=== PATIENT | female | born 1950 | race Caucasian/White ===

== ENCOUNTER 2016-04-22 02:35 | Emergency (ER) | payer MEDICARE ==
[2016-04-22 03:17] LABS: BASOPHILS 0 % (0.0-2.0); EOSINOPHILS 1.4 % (0-7); HEMATOCRIT 47.3 % (36.0-48.0); HEMOGLOBIN 15.6 g/dL (12-16); IMMATURE GRANULOCYTES 0.3 % (0-5); LYMPHOCYTES 10.1 % (15-50); MCH 31.3 pg (26.0-34.0); MEAN PLATELET VOLUME 11.2 fL (7.4-10.4); MONOCYTES 7.6 % (2-11); NEUTROPHILS 80.6 % (40-80); PLATELET COUNT 207 10x3/uL (130-400); RBC 4.98 10x6/uL (4.00-5.40); RDW 12.9 % (11.5-14.5); WBC 7.2 10x3/uL (4.8-10.8)
[2016-04-22 03:26] LABS: HELICOBACTER PYLORI IGG POSITIVE (NEGATIVE)
[2016-04-22 03:31] LABS: ALBUMIN 3.4 g/dL (3.4-5.0); ALKALINE PHOSPHATASE 61 U/L (46-116); ALT (SGPT) 129 U/L (10-68); BILIRUBIN - TOTAL 0.79 mg/dL (0.2-1.3); CALC OSMOLALITY 290 mosm/kg (275-300); CALCIUM 8.6 mg/dL (8.5-10.1); CARBON DIOXIDE 25.5 mmol/L (21.0-32.0); CHLORIDE - SERUM 100 mmol/L (98-107); GLUCOSE 333 mg/dL (74-106); POTASSIUM - SERUM 3.7 mmol/L (3.5-5.1); PROTEIN - SERUM 6.8 g/dL (6.4-8.2); SODIUM 138 mmol/L (136-145); UREA NITROGEN 18 mg/dL (7-18); eGFR NON AFRICAN AMERICAN 58 mL/min (90-120)
[2016-04-22 03:34] LABS: AMYLASE - SERUM 67 U/L (25-115); LIPASE 287 U/L (73-393); MAGNESIUM - SERUM 1.5 mg/dL (1.8-2.4); PHOSPHOROUS 2.7 mg/dL (2.5-4.9); TROPONIN-I < 0.017 ng/mL (0.000-0.060)
== END 2016-04-22 09:49 | disposition home or self-care (01) ==
LOC: D.ER 02:35
PROVIDERS: Surgery
DX: K21.9 Gastro-esophageal reflux disease without esophagitis (principal); R10.9 Unspecified abdominal pain; E83.42 Hypomagnesemia; I10 Essential (primary) hypertension

== ENCOUNTER 2016-12-09 21:25 | Emergency (ER) | payer MEDICARE | END 2016-12-09 23:14 | disposition home or self-care (01) | LOC: D.ER 21:25 | DX: M54.16 Radiculopathy, lumbar region (principal); K21.9 Gastro-esophageal reflux disease without esophagitis; I10 Essential (primary) hypertension; E11.9 Type 2 diabetes mellitus without complications ==

== ENCOUNTER 2016-12-11 03:16 | Emergency (ER) | payer MEDICARE | END 2016-12-11 04:09 | disposition home or self-care (01) | LOC: D.ER 03:16 | DX: M54.5 Low back pain (principal); M54.10 Radiculopathy, site unspecified; M25.561 Pain in right knee; I10 Essential (primary) hypertension; E11.9 Type 2 diabetes mellitus without complications; K21.9 Gastro-esophageal reflux disease without esophagitis ==

== ENCOUNTER 2016-12-20 03:01 | Emergency (ER) | payer MEDICARE | END 2016-12-20 04:03 | disposition home or self-care (01) | LOC: D.ER 03:01 | DX: M54.9 Dorsalgia, unspecified (principal); M54.10 Radiculopathy, site unspecified; I10 Essential (primary) hypertension ==

== ENCOUNTER → 2016-12-22 09:38 | Outpatient (CLI) | payer MEDICARE, OTHER | END | disposition home or self-care (01) | LOC: D.MRI 09:38 | DX: M54.41 Lumbago with sciatica, right side (principal) ==

== ENCOUNTER → 2016-12-27 14:03 | Outpatient (CLI) | payer MEDICARE, OTHER | END | disposition home or self-care (01) | LOC: D.CT 14:00 | DX: M54.40 Lumbago with sciatica, unspecified side (principal) ==

== ENCOUNTER → 2017-01-24 15:33 | Outpatient (CLI) | payer MEDICARE, OTHER | END | disposition home or self-care (01) | LOC: D.LABREF 15:33 | DX: M17.11 Unilateral primary osteoarthritis, right knee (principal); Z11.8 Encounter for screening for other infectious and parasitic diseases ==